=== PATIENT | male | born 1985 ===

== ENCOUNTER 2021-05-29 06:09 | Emergency (ER) | payer MEDICARE, MEDICAID ==
[2021-05-29] MEDS ORDERED: Ondansetron 4 MG/2 ML SDV IVPUSH ONE (06:19)
[2021-05-29] MEDS ORDERED: Sodium Chloride 0.9% 1,000 ML IV ONE (06:19)
[2021-05-29] MEDS ORDERED: HYDROmorphone 0.5 MG/0.5 ML Syringe IVPUSH ONE (06:32)
--- NOTE | 2021-05-29 07:04 | EDM.PDOC ---
"ED HPI GENERAL MEDICAL PROBLEM - General Chief Complaint: Abdominal Pain Stated Complaint: SEVERE ABDOMINAL PAIN 1 HOUR Time Seen by Provider: 05/29/21 07:00 Source of Information: Reports: Patient, Provider (Katherine PRASAD), RN, RN Notes Reviewed, Other (Caregiver) - History of Present Illness INITIAL COMMENTS - FREE TEXT/NARRATIVE: [facility] evaluation of acute LLQ abdominal pain and vomiting. Pt reports he awoke this morning and the pain immediately began without any known cause. The pain radiates from the left flank through the LLQ abdomen and into the left testicle. Denies fever, chills, or dysuria. Pt has vomited a couple times this morning. Pt rates the pain 8/10. Nothing aggravates or alleviates the pain. No previous abdominal surgeries. Onset: Today, Sudden Duration: Hour(s): (1), Intermittent, Waxing/Waning Location: Reports: Abdomen (LLQ) Quality: Reports: Ache Severity: Severe Improves with: Reports: None Worsens with: Reports: None Associated Symptoms: Reports: No Other Symptoms - Related Data Allergies Allergy/AdvReac Type Severity Reaction Status Date / Time No Known Allergies Allergy Verified 05/29/21 06:29 Home Meds: Home Meds Divalproex Sodium [Divalproex Sodium ER] 2,250 mg PO DAILY 05/29/21 [History] FLUoxetine HCl [Prozac] 60 mg PO DAILY 05/29/21 [History] Fish Oil/[place]-3 Fatty Acids [Fish Oil 1,000 MG] 1 gm PO DAILY 05/29/21 [History] Levothyroxine 12.5 mcg PO ACBREAKFAST 05/29/21 [History] Melatonin 5 mg PO DAILY 05/29/21 [History] Omeprazole 20 mg PO DAILY 05/29/21 [History] Simvastatin 20 mg PO DAILY 05/29/21 [History] Vortioxetine Hydrobromide [Trintellix] 10 mg PO DAILY 05/29/21 [History] lisinopriL [Lisinopril] 10 mg PO DAILY 05/29/21 [History] Past Medical History Neurological History: Reports: Seizure Psychiatric History: Reports: ADHD, Depression, Other (See Below) Other Psychiatric History: Obsessive Compulsive Neurosis; Oppositional Defiant Disorder; Intellectual disability Social & Family History - Family History Family Medical History: Unobtainable - Tobacco Use Tobacco Use Status *Q: Current Some Day Tobacco User Years of Tobacco use: 14 Packs/Tins Daily: 0.1 - Recreational Drug Use Recreational Drug Use: No - Living Situation & Occupation Living situation: Reports: Other (Detention) ED ROS GENERAL - Review of Systems Review Of Systems: Comprehensive ROS is negative, except as noted in HPI. ED EXAM, GI/ABD - Physical Exam Exam: See Below Exam Limited By: No Limitations General Appearance: Alert, WD/WN, No Apparent Distress Eyes: Bilateral: Normal Appearance (No scleral icterus) Throat/Mouth: Normal Voice, No Airway Compromise Head: Atraumatic, Normocephalic Neck: Normal Inspection Respiratory/Chest: No Respiratory Distress, Lungs Clear Cardiovascular: Regular Rate, Rhythm GI/Abdominal Exam: Normal Bowel Sounds, Soft, No Distention, Tender (LLQ). No: Guarding, Rigid, Rebound (Male) Exam: Deferred Rectal (Males) Exam: Deferred Back Exam: Normal Inspection Neurological: Alert, No Motor/Sensory Deficits Psychiatric: Flat Affect Skin Exam: Warm, Dry, Intact, Normal Color, No Rash Course - Vital Signs Last Recorded V/S: Last Vital Signs Temp 98.4 F 05/29/21 06:30 Pulse 84 05/29/21 07:08 Resp 24 H 05/29/21 07:08 BP 147/100 H 05/29/21 07:08 Pulse Ox 91 L 05/29/21 07:08 - Orders/Labs/Meds Orders: Active Orders 24 hr Category Date Time Status CULTURE BLOOD [BC] Stat Lab 05/29/21 06:29 Received DRUG SCREEN URINE BIORAD [URCHEM] Stat Lab 05/29/21 06:18 Ordered UA RFX ALEJANDRA AND CULT IF INDIC [URIN] Stat Lab 05/29/21 06:16 Ordered Sodium Chloride 0.9% [Normal Saline] 1,000 ml Med 05/29/21 06:19 Active IV .BOLUS Medication Orders Sodium Chloride (Normal Saline) 1,000 mls @ 200 mls/hr IV .BOLUS ONE Stop: 05/29/21 11:18 Last Admin: 05/29/21 06:39 Dose: 200 mls/hr Documented by: OJ Labs: Laboratory Tests 05/29/21 05/29/21 05/29/21 Range/Units 06:19 06:20 06:29 WBC 7.6 (5.0-10.0) 10^3/uL RBC 5.53 (4.6-6.2) 10^6/uL Hgb 16.5 (14.0-18.0) g/dL Hct 48.2 (40.0-54.0) % MCV 87.2 (80-100) fL MCH 29.8 (27.0-34.0) pg MCHC 34.2 (33.0-35.0) g/dL Plt Count 230 (150-450) 10^3/uL Neut % (Auto) 45.8 (42.2-75.2) % Lymph % (Auto) 45.0 (20.5-50.1) % [place] % (Auto) 7.7 (2-8) % Eos % (Auto) 1.0 (1.0-3.0) % Baso % (Auto) 0.5 (0.0-1.0) % D-Dimer, Quantitative (0-400) ng/mL Sodium (136-145) mmol/L Potassium (3.5-5.1) mmol/L Chloride (98-107) mmol/L Carbon Dioxide (21-32) mmol/L Anion Gap (7-13) mEq/L BUN (7-18) mg/dL Creatinine (0.70-1.30) mg/dL Est Cr Clr Drug Dosing mL/min Estimated GFR (MDRD) BUN/Creatinine Ratio (No establ ref range) Glucose (70-99) mg/dL Lactic Acid 1.9 (0.4-2.0) mmol/L Calcium (8.5-10.1) mg/dL Magnesium (1.8-2.4) mg/dL Total Bilirubin (0.2-1.0) mg/dL AST (15-37) U/L ALT (16-63) U/L Alkaline Phosphatase (46-116) U/L Total Protein (6.4-8.2) g/dL Albumin (3.4-5.0) g/dL Globulin Albumin/Globulin Ratio Amylase (25-115) U/L Lipase (73-393) U/L Influenza Type A RNA Negative (NEGATIVE) Influenza Type B RNA Negative (NEGATIVE) SARS-CoV-2 RNA (LES) Negative (NEGATIVE) 05/29/21 05/29/21 Range/Units 06:29 06:29 WBC (5.0-10.0) 10^3/uL RBC (4.6-6.2) 10^6/uL Hgb (14.0-18.0) g/dL Hct (40.0-54.0) % MCV (80-100) fL MCH (27.0-34.0) pg MCHC (33.0-35.0) g/dL Plt Count (150-450) 10^3/uL Neut % (Auto) (42.2-75.2) % Lymph % (Auto) (20.5-50.1) % [place] % (Auto) (2-8) % Eos % (Auto) (1.0-3.0) % Baso % (Auto) (0.0-1.0) % D-Dimer, Quantitative < 100 (0-400) ng/mL Sodium 141 (136-145) mmol/L Potassium 3.9 (3.5-5.1) mmol/L Chloride 102 (98-107) mmol/L Carbon Dioxide 24 (21-32) mmol/L Anion Gap 18.9 H (7-13) mEq/L BUN 15 (7-18) mg/dL Creatinine 0.79 (0.70-1.30) mg/dL Est Cr Clr Drug Dosing 147.49 mL/min Estimated GFR (MDRD) > 60 BUN/Creatinine Ratio 19.0 (No establ ref range) Glucose 160 H (70-99) mg/dL Lactic Acid (0.4-2.0) mmol/L Calcium 9.1 (8.5-10.1) mg/dL Magnesium 2.0 (1.8-2.4) mg/dL Total Bilirubin 0.5 (0.2-1.0) mg/dL AST 19 (15-37) U/L ALT 58 (16-63) U/L Alkaline Phosphatase 61 (46-116) U/L Total Protein 7.2 (6.4-8.2) g/dL Albumin 3.6 (3.4-5.0) g/dL Globulin 3.6 Albumin/Globulin Ratio 1.0 Amylase 16 L (25-115) U/L Lipase 161 (73-393) U/L Influenza Type A RNA (NEGATIVE) Influenza Type B RNA (NEGATIVE) SARS-CoV-2 RNA (LES) (NEGATIVE) Meds: Medications Generic Name Dose Route Start Last Admin Trade Name Freq PRN Reason Stop Dose Admin Sodium Chloride 1,000 mls @ 200 mls/hr 05/29/21 06:19 05/29/21 06:39 Normal Saline IV 05/29/21 11:18 200 mls/hr .BOLUS ONE Administration Discontinued Medications Generic Name Dose Route Start Last Admin Trade Name Freq PRN Reason Stop Dose Admin Hydromorphone HCl 0.5 mg 05/29/21 06:32 05/29/21 06:41 Hydromorphone 0.5 Mg/0.5 Ml Syringe IVPUSH 05/29/21 06:33 0.5 mg ONETIME ONE Administration Ondansetron HCl 4 mg 05/29/21 06:19 05/29/21 06:40 Ondansetron 4 Mg/2 Ml Sdv IVPUSH 05/29/21 06:20 4 mg ONETIME ONE Administration - Radiology Interpretation Free Text/Narrative:: [facility] Final Radiology Report Call: [phone] assistance Online chat: [email or web address] Name: IZAIAH FISHER Age: 35Years M Date: 05/29/2021 SSN: -- : [id number] Study: CT ABDOMEN PELVIS WO CONT Requesting Physician: ANGEL KEITH Images: [id number] Addl Studies: Provided Clinical History: Left flank, LLQ abd. pain radiating to L. testicle Contrast: Without Contrast Medium: Contrast Amount: Contrast Method: Page 1 of 2 PROCEDURE INFORMATION: Exam: CT Abdomen And Pelvis Without Contrast Exam date and time: 05/29/2021 7:44 AM Age: 35 years old Clinical indication: Abdominal pain; Flank; Left; Additional info: Left flank, llq abd. Pain radiating to L. Testicle TECHNIQUE: Imaging protocol: Computed tomography of the abdomen and pelvis without contrast. Radiation optimization: All CT scans at this facility use at least one of these dose optimization techniques: automated exposure control; mA and/or kV adjustment per patient size (includes targeted exams where dose is matched to clinical indication); or iterative reconstruction. COMPARISON: No relevant prior studies available. FINDINGS: Limitations: Evaluation of the solid and vascular structures is somewhat limited by lack of IV contrast. Lungs: The visualized lung bases demonstrate mild dependent atelectasis. Liver: Grossly unremarkable. Gallbladder and bile ducts: No gallstones are evident, but ultrasound would be more sensitive. No gross biliary ductal dilatation. Pancreas: Grossly unremarkable. Spleen: Grossly unremarkable. Adrenal glands: Grossly unremarkable. Kidneys and ureters: Very mild left-sided hydroureteronephrosis secondary to a 4 x 2 x 2 mm distal left ureteral stone, approximately 3 cm proximal to the ureterovesical junction. There is no right-sided IZAIAH FISHER | Final Radiology Report CONFIDENTIALITY STATEMENT This report is intended only for use by the referring physician, and only in accordance with law. If you received this in error, call [phone]. Page 2 of 2 hydronephrosis or stone. The right kidney contains a simple appearing 11 mm cyst. The kidneys appear otherwise grossly unremarkable. Stomach and bowel: The unopacified small bowel is not significantly distended to suggest obstruction. The large bowel is grossly unremarkable in appearance. Appendix: The appendix appears normal. Intraperitoneal space: No free air or significant free fluid. Vasculature: Unremarkable. No abdominal aortic aneurysm. Lymph nodes: No gross pathologic lymphadenopathy. Urinary bladder: Grossly unremarkable. Reproductive: Unremarkable as visualized. Bones/joints: Chronic right-sided pars defect is noted at L5. Mild degenerative changes involve the spine. Soft tissues: Unremarkable. IMPRESSION: Very mild left-sided hydroureteronephrosis secondary to a 4 x 2 x 2 mm distal left ureteral stone, approximately 3 cm proximal to the ureterovesical junction. COMMENTS: Consistent with the [employer]'s Incidental Findings Committee white paper ([employer] [place] [employer] 2018): Any incidental renal lesion less than 1 cm or classified as too small to characterize, or any incidental cystic renal lesion characterized as simple- appearing, is likely benign. No follow-up imaging is recommended for these lesions per consensus recommendations based on imaging criteria. Thank you for allowing us to participate in the care of your patient. Dictated and Authenticated by: Aung Espinosa MD 05/29/2021 8:14 AM Central Time ([place] & [place]) Departure - Departure Time of Disposition: 08:16 Disposition: Home, Self-Care 01 Condition: Good Clinical Impression: Left renal stone, Renal colic on left side - Discharge Information *PRESCRIPTION DRUG MONITORING PROGRAM REVIEWED*: No *COPY OF PRESCRIPTION DRUG MONITORING REPORT IN PATIENT ZAC: No Instructions: Kidney Stones, [id number], Renal Colic, [id number] Forms: ED Department Discharge Additional Instructions: Rx: Flomax 0.4mg Rx: Zofran 4mg Rx: [place] (Hydrocodone APAP) 5mg/325mg Drink plenty of water. Follow up with primary physician in clinic this week for recheck, and consideration of referral to urology clinic if the stone does not pass on its own. Return to ER if the pain is uncontrolled or if fever develops. Sepsis Event Note (ED) - Focused Exam Vital Signs: Vital Signs Temp Pulse Resp BP Pulse Ox 05/29/21 07:08 84 24 H 147/100 H 91 L 05/29/21 06:30 98.4 F 78 22 H 158/118 H 97"
[2021-05-29 07:22] LABS: CORONAVIRUS COVID-19 NAA NEGATIVE (NEGATIVE)
[2021-05-29 07:51] LABS: ANION GAP 18.9 mEq/L (7-13); CHLORIDE,CL 102 mmol/L (98-107); SODIUM,NA 141 mmol/L (136-145)
--- NOTE | 2021-05-29 08:14 | CT ---
PROCEDURE INFORMATION: Exam: CT Abdomen And Pelvis Without Contrast Exam date and time: 05/29/2021 7:44 AM Age: 35 years old Clinical indication: Abdominal pain; Flank; Left; Additional info: Left flank, llq abd. Pain radiating to L. Testicle TECHNIQUE: Imaging protocol: Computed tomography of the abdomen and pelvis without contrast. Radiation optimization: All CT scans at this facility use at least one of these dose optimization techniques: automated exposure control; mA and/or kV adjustment per patient size (includes targeted exams where dose is matched to clinical indication); or iterative reconstruction. COMPARISON: No relevant prior studies available. FINDINGS: Limitations: Evaluation of the solid and vascular structures is somewhat limited by lack of IV contrast. Lungs: The visualized lung bases demonstrate mild dependent atelectasis. Liver: Grossly unremarkable. Gallbladder and bile ducts: No gallstones are evident, but ultrasound would be more sensitive. No gross biliary ductal dilatation. Pancreas: Grossly unremarkable. Spleen: Grossly unremarkable. Adrenal glands: Grossly unremarkable. Kidneys and ureters: Very mild left-sided hydroureteronephrosis secondary to a 4 x 2 x 2 mm distal left ureteral stone, approximately 3 cm proximal to the ureterovesical junction. There is no right-sided hydronephrosis or stone. The right kidney contains a simple appearing 11 mm cyst. The kidneys appear otherwise grossly unremarkable. Stomach and bowel: The unopacified small bowel is not significantly distended to suggest obstruction. The large bowel is grossly unremarkable in appearance. Appendix: The appendix appears normal. Intraperitoneal space: No free air or significant free fluid. Vasculature: Unremarkable. No abdominal aortic aneurysm. Lymph nodes: No gross pathologic lymphadenopathy. Urinary bladder: Grossly unremarkable. Reproductive: Unremarkable as visualized. Bones/joints: Chronic right-sided pars defect is noted at L5. Mild degenerative changes involve the spine. Soft tissues: Unremarkable. IMPRESSION: Very mild left-sided hydroureteronephrosis secondary to a 4 x 2 x 2 mm distal left ureteral stone, approximately 3 cm proximal to the ureterovesical junction. COMMENTS: Consistent with the [place] [employer] [employer]'s Incidental Findings Committee white paper ([employer] Am [place] [employer]iol 2018): Any incidental renal lesion less than 1 cm or classified as too small to characterize, or any incidental cystic renal lesion characterized as simple-appearing, is likely benign. No follow-up imaging is recommended for these lesions per consensus recommendations based on imaging criteria.
== END 2021-05-29 09:45 | disposition home or self-care (01) ==
LOC: DL.ED 06:09
DX: N13.2 Hydronephrosis with renal and ureteral calculous obstruction (principal); Z72.0 Tobacco use; Z20.822 Contact with and (suspected) exposure to COVID-19
CPT/HCPCS: 0240U; 36415; 74176; 80053; 82150; 83605; 83690; 83735; 85025; 85379; 87040; 96374; 96375; 99284; J1170; J2405; J7030

== ENCOUNTER 2021-05-31 04:23 | Emergency (ER) | payer MEDICARE, MEDICAID ==
[2021-05-31] MEDS ORDERED: HYDROmorphone 1 MG/ML Syringe IVPUSH ONE (04:34)
[2021-05-31] MEDS ORDERED: Ondansetron 4 MG/2 ML SDV IVPUSH ONE (04:34)
[2021-05-31] MEDS ORDERED: Sodium Chloride 0.9% 1,000 ML IV ONE (04:34)
[2021-05-31] MEDS ORDERED: Ketorolac 30 MG/ML SDV IVPUSH ONE (05:20)
[2021-05-31 05:38] LABS: ANION GAP 16.6 mEq/L (7-13); CHLORIDE,CL 102 mmol/L (98-107); SODIUM,NA 139 mmol/L (136-145)
--- NOTE | 2021-05-31 05:44 | EDM.PDOC ---
"<RandyMarquez Lino - Last Filed: 05/31/21 06:26> ED HPI GENERAL MEDICAL PROBLEM - General Chief Complaint: Flank Pain Stated Complaint: VOMITING,STOMACH PAIN Time Seen by Provider: 05/31/21 04:40 Source of Information: Reports: Patient, Other - History of Present Illness INITIAL COMMENTS - FREE TEXT/NARRATIVE: ED with c/o LLQ pain, groin testicular pain. Patient seen in ED on Friday. 4mm stone on CT. Patient reports 1-2 days ago passed some blood. Has not been straining urine. Unknown if fever or chill. Rates pain 9/10 Vomiting this am. Did not need hydrocodone until this am Treatments LAB TESTER: Reports: Other (see below) Other Treatments LAB TESTER: Pain pill. ? hydrocodone. Left Flank Pain Score (Numeric/FACES): 10 - Related Data Allergies Allergy/AdvReac Type Severity Reaction Status Date / Time No Known Allergies Allergy Verified 05/31/21 05:10 Home Meds: Home Meds Divalproex Sodium [Divalproex Sodium ER] 2,250 mg PO DAILY 05/29/21 [History] Fish Oil/[place]-3 Fatty Acids [Fish Oil 1,000 MG] 1 gm PO DAILY 05/29/21 [History] Levothyroxine 12.5 mcg PO ACBREAKFAST 05/29/21 [History] Melatonin 5 mg PO DAILY 05/29/21 [History] Omeprazole 20 mg PO DAILY 05/29/21 [History] Simvastatin 20 mg PO DAILY 05/29/21 [History] Vortioxetine Hydrobromide [Trintellix] 10 mg PO DAILY 05/29/21 [History] lisinopriL [Lisinopril] 10 mg PO DAILY 05/29/21 [History] Acetaminophen/HYDROcodone [HYDROcodone-Acetaminophen 5-325 MG *] 5 mg PO ASDIRECTED PRN 05/31/21 [History] Tamsulosin [Flomax] 0.4 mg PO DAILY 05/31/21 [History] Past Medical History - Past Health History Medical/Surgical History: Denies Medical/Surgical History Neurological History: Reports: Seizure Psychiatric History: Reports: ADHD, Depression, Other (See Below) Other Psychiatric History: Obsessive Compulsive Neurosis; Oppositional Defiant Disorder; Intellectual disability Social & Family History - Family History Family Medical History: Unobtainable - Tobacco Use Second Hand Smoke Exposure: No - Caffeine Use Caffeine Use: Reports: None - Recreational Drug Use Recreational Drug Use: No - Living Situation & Occupation Living situation: Reports: Other ([facility]) ED ROS GENERAL - Review of Systems Review Of Systems: Comprehensive ROS is negative, except as noted in HPI. ED EXAM, RENAL/ - Physical Exam Exam: See Below Exam Limited By: No Limitations General Appearance: Alert, Anxious, Moderate Distress Eye Exam: Bilateral Eye: PERRL Ears: Normal External Exam, Hearing Grossly Normal Nose: Normal Inspection Throat/Mouth: Normal Inspection Head: Atraumatic, Normocephalic Neck: Normal Inspection, Full Range of Motion Respiratory/Chest: No Respiratory Distress Cardiovascular: Normal Peripheral Pulses, Regular Rate, Rhythm GI/Abdominal: Normal Bowel Sounds, Soft, Tender (left lower) Back Exam: Full Range of Motion Extremities: Normal Inspection Neurological: No: Normal Cognition Psychiatric: Anxious Skin Exam: Warm, Dry Course - Re-Assessments/Exams Free Text/Narrative Re-Assessment/Exam: 05/31/21 06:14 Dozing, awaiting Rad report. No further emesis. Departure - Departure Disposition: DC/Tfer to [facility] Condition: Good Clinical Impression: Renal calculi, Left renal stone, Renal colic on left side Nausea & vomiting Qualifiers: Vomiting type: bilious vomiting Qualified Code(s): R11.14 - Bilious vomiting - Discharge Information *PRESCRIPTION DRUG MONITORING PROGRAM REVIEWED*: No *COPY OF PRESCRIPTION DRUG MONITORING REPORT IN PATIENT ZAC: No Instructions: Kidney Stones, [id number], Renal Colic, [id number] Forms: ED Department Discharge Additional Instructions: Rx: Zofran 4mg ODT one every 6 hours as needed for nausea [place] (Hydrocodone) as previously prescribed Light diet as tolerated, start liquids advance as tolerated Izaiah has an appointment at [facility] in [place] tomorrow, 06/01/21 at 8:30AM. The clinic is located at [address]. Enter through door [address], the urology clinic is on the second floor. Sepsis Event Note (ED) - Evaluation Sepsis Screening Result: No Definite Risk <Zeus Villanueva - Last Filed: 05/31/21 08:35> ED HPI GENERAL MEDICAL PROBLEM - General Source of Information: Reports: Patient, Old Records, Provider (Marquez PRASAD), RN, RN Notes Reviewed, Other (Caregiver) History Limitations: Reports: Other (Mentally disabled.) - History of Present Illness Duration: Colic, Intermittent, Recurring Location: Reports: Abdomen, Back Quality: Reports: Ache, Same as Previous Episode Severity: Severe Improves with: Reports: None Worsens with: Reports: None Course - Vital Signs Last Recorded V/S: Last Vital Signs Temp 97.6 F 05/31/21 05:28 Pulse 87 05/31/21 05:56 Resp 17 05/31/21 05:56 BP 156/97 H 05/31/21 05:56 Pulse Ox 92 L 05/31/21 05:56 - Orders/Labs/Meds Labs: Laboratory Tests 05/31/21 05/31/21 05/31/21 Range/Units 04:50 04:50 04:50 WBC 7.2 (5.0-10.0) 10^3/uL RBC 4.85 (4.6-6.2) 10^6/uL Hgb 14.4 D (14.0-18.0) g/dL Hct 42.6 (40.0-54.0) % MCV 87.8 (80-100) fL MCH 29.7 (27.0-34.0) pg MCHC 33.8 (33.0-35.0) g/dL Plt Count 198 (150-450) 10^3/uL Neut % (Auto) 46.9 (42.2-75.2) % Lymph % (Auto) 42.5 (20.5-50.1) % [place] % (Auto) 9.6 H (2-8) % Eos % (Auto) 0.6 L (1.0-3.0) % Baso % (Auto) 0.4 (0.0-1.0) % Sodium 139 (136-145) mmol/L Potassium 3.6 (3.5-5.1) mmol/L Chloride 102 (98-107) mmol/L Carbon Dioxide 24 (21-32) mmol/L Anion Gap 16.6 H (7-13) mEq/L BUN 13 (7-18) mg/dL Creatinine 0.76 (0.70-1.30) mg/dL Est Cr Clr Drug Dosing 148.90 mL/min Estimated GFR (MDRD) > 60 BUN/Creatinine Ratio 17.1 (No establ ref range) Glucose 137 H (70-99) mg/dL Lactic Acid 1.4 (0.4-2.0) mmol/L Calcium 8.8 (8.5-10.1) mg/dL Total Bilirubin 0.4 (0.2-1.0) mg/dL AST 21 (15-37) U/L ALT 43 (16-63) U/L Alkaline Phosphatase 49 (46-116) U/L Total Protein 6.6 (6.4-8.2) g/dL Albumin 3.4 (3.4-5.0) g/dL Globulin 3.2 Albumin/Globulin Ratio 1.1 Urine Color (YELLOW) Urine Appearance (CLEAR) Urine pH (5.0-9.0) Ur Specific [place] (1.005-1.030) Urine Protein (NEGATIVE) Urine Glucose (UA) (NEGATIVE) Urine Ketones (NEGATIVE) Urine Occult Blood (NEGATIVE) Urine Nitrite (NEGATIVE) Urine Bilirubin (NEGATIVE) Urine Urobilinogen (0.2-1.0) mg/dL Ur Leukocyte Esterase (NEGATIVE) Urine RBC (0-5) /HPF Urine WBC (0-5/HPF) /HPF Urine Mucus (NOT SEEN) /LPF 05/31/21 Range/Units 07:20 WBC (5.0-10.0) 10^3/uL RBC (4.6-6.2) 10^6/uL Hgb (14.0-18.0) g/dL Hct (40.0-54.0) % MCV (80-100) fL MCH (27.0-34.0) pg MCHC (33.0-35.0) g/dL Plt Count (150-450) 10^3/uL Neut % (Auto) (42.2-75.2) % Lymph % (Auto) (20.5-50.1) % [place] % (Auto) (2-8) % Eos % (Auto) (1.0-3.0) % Baso % (Auto) (0.0-1.0) % Sodium (136-145) mmol/L Potassium (3.5-5.1) mmol/L Chloride (98-107) mmol/L Carbon Dioxide (21-32) mmol/L Anion Gap (7-13) mEq/L BUN (7-18) mg/dL Creatinine (0.70-1.30) mg/dL Est Cr Clr Drug Dosing mL/min Estimated GFR (MDRD) BUN/Creatinine Ratio (No establ ref range) Glucose (70-99) mg/dL Lactic Acid (0.4-2.0) mmol/L Calcium (8.5-10.1) mg/dL Total Bilirubin (0.2-1.0) mg/dL AST (15-37) U/L ALT (16-63) U/L Alkaline Phosphatase (46-116) U/L Total Protein (6.4-8.2) g/dL Albumin (3.4-5.0) g/dL Globulin Albumin/Globulin Ratio Urine Color Yellow (YELLOW) Urine Appearance Clear (CLEAR) Urine pH 6.0 (5.0-9.0) Ur Specific [place] >= 1.030 (1.005-1.030) Urine Protein Negative (NEGATIVE) Urine Glucose (UA) Negative (NEGATIVE) Urine Ketones Trace H (NEGATIVE) Urine Occult Blood Moderate H (NEGATIVE) Urine Nitrite Negative (NEGATIVE) Urine Bilirubin Negative (NEGATIVE) Urine Urobilinogen 0.2 (0.2-1.0) mg/dL Ur Leukocyte Esterase Negative (NEGATIVE) Urine RBC 30-40 H (0-5) /HPF Urine WBC 0-5 (0-5/HPF) /HPF Urine Mucus Moderate H (NOT SEEN) /LPF Meds: Medications Discontinued Medications Generic Name Dose Route Start Last Admin Trade Name Freq PRN Reason Stop Dose Admin Hydromorphone HCl 1 mg 05/31/21 04:34 05/31/21 04:52 Hydromorphone 1 Mg/Ml Syringe IVPUSH 05/31/21 04:35 1 mg ONETIME ONE Administration Sodium Chloride 1,000 mls @ 999 mls/hr 05/31/21 04:34 05/31/21 04:49 Normal Saline IV 05/31/21 05:34 999 mls/hr .BOLUS ONE Administration Ketorolac Tromethamine 30 mg 05/31/21 05:20 05/31/21 05:23 Ketorolac 30 Mg/Ml Sdv IVPUSH 05/31/21 05:21 30 mg ONETIME ONE Administration Ondansetron HCl 4 mg 05/31/21 04:34 05/31/21 04:51 Ondansetron 4 Mg/2 Ml Sdv IVPUSH 05/31/21 04:35 4 mg ONETIME ONE Administration - Radiology Interpretation Free Text/Narrative:: [facility] [place] [facility] Final Radiology Report Call: [phone] assistance Online chat: [email or web address] Name: IZAIAH FISHER Age: 35Years M Date: 05/31/2021 SSN: -- : [id number] Study: CT ABDOMEN PELVIS WO CONT Requesting Physician: MARQUEZ SALCEDO Images: [id number] Addl Studies: Provided Clinical History: left abdominal pain vomiting, recent stone left Contrast: Without Contrast Medium: Contrast Amount: Contrast Method: Page 1 of 2 PROCEDURE INFORMATION: Exam: CT Abdomen And Pelvis Without Contrast Exam date and time: 05/31/2021 5:13 AM Age: 35 years old Clinical indication: Abdominal pain; Flank; Left; Additional info: Left abdominal pain vomiting, recent stone left TECHNIQUE: Imaging protocol: Computed tomography of the abdomen and pelvis without contrast. Radiation optimization: All CT scans at this facility use at least one of these dose optimization techniques: automated exposure control; mA and/or kV adjustment per patient size (includes targeted exams where dose is matched to clinical indication); or iterative reconstruction. COMPARISON: CT Abdomen Pelvis wo Cont 05/29/2021 7:44 AM FINDINGS: Limitations: Evaluation of the solid and vascular structures is somewhat limited by lack of IV contrast. Lungs: The visualized lung bases demonstrate minor dependent atelectasis. Liver: Grossly unremarkable. Gallbladder and bile ducts: No gallstones are evident, but ultrasound would be more sensitive. No gross biliary ductal dilatation. Pancreas: Grossly unremarkable. Spleen: Grossly unremarkable. Adrenal glands: Grossly unremarkable. Kidneys and ureters: There is similar, very mild left-sided hydroureteronephrosis with a 4 x 2 x 2 mm stone similarly located in the distal ureter. There is no right-sided hydronephrosis or stone. The IZAIAH FISHER | Final Radiology Report CONFIDENTIALITY STATEMENT This report is intended only for use by the referring physician, and only in accordance with law. If you received this in error, call [phone]. Page 2 of 2 right kidney again contains an 11 mm simple appearing cyst. The kidneys appear otherwise grossly unremarkable. Stomach and bowel: The unopacified small bowel is not significantly distended to suggest obstruction. The large bowel is grossly unremarkable in appearance. Appendix: The appendix appears normal. Intraperitoneal space: No free air or significant free fluid. Vasculature: Unremarkable. No abdominal aortic aneurysm. Lymph nodes: No gross pathologic lymphadenopathy. Urinary bladder: Grossly unremarkable. Reproductive: Unremarkable as visualized. 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 Mild degenerative changes again involve the spine. Soft tissues: Unremarkable. IMPRESSION: Very mild left-sided hydroureteronephrosis secondary to a 4 mm distal left ureteral stone, similar to 05/29/2021. Thank you for allowing us to participate in the care of your patient. Dictated and Authenticated by: Aung Espinosa MD 05/31/2021 7:07 AM Central Time ([place] & [place]) - Re-Assessments/Exams Free Text/Narrative Re-Assessment/Exam: 05/31/21 08:25 I consulted urologist, Dr. Chicas. He agrees to see the pt in clinic tomorrow. [facility] has scheduled the pt tomorrow, 06/01/21 at 0830HRS. Departure - Departure Time of Disposition: 08:29 (discharge back to alf) Sepsis Event Note (ED) - Focused Exam Vital Signs: Vital Signs Temp Pulse Resp BP Pulse Ox 05/31/21 05:56 87 17 156/97 H 92 L 05/31/21 05:28 97.6 F 80 16 173/108 H 96 05/31/21 05:03 83 15 157/91 H 98 05/31/21 04:33 96.5 F L 77 16 176/105 H 99"
--- NOTE | 2021-05-31 07:07 | CT ---
PROCEDURE INFORMATION: Exam: CT Abdomen And Pelvis Without Contrast Exam date and time: 05/31/2021 5:13 AM Age: 35 years old Clinical indication: Abdominal pain; Flank; Left; Additional info: Left abdominal pain vomiting, recent stone left TECHNIQUE: Imaging protocol: Computed tomography of the abdomen and pelvis without contrast. Radiation optimization: All CT scans at this facility use at least one of these dose optimization techniques: automated exposure control; mA and/or kV adjustment per patient size (includes targeted exams where dose is matched to clinical indication); or iterative reconstruction. COMPARISON: CT Abdomen Pelvis wo Cont 05/29/2021 7:44 AM FINDINGS: Limitations: Evaluation of the solid and vascular structures is somewhat limited by lack of IV contrast. Lungs: The visualized lung bases demonstrate minor dependent atelectasis. Liver: Grossly unremarkable. Gallbladder and bile ducts: No gallstones are evident, but ultrasound would be more sensitive. No gross biliary ductal dilatation. Pancreas: Grossly unremarkable. Spleen: Grossly unremarkable. Adrenal glands: Grossly unremarkable. Kidneys and ureters: There is similar, very mild left-sided hydroureteronephrosis with a 4 x 2 x 2 mm stone similarly located in the distal ureter. There is no right-sided hydronephrosis or stone. The right kidney again contains an 11 mm simple appearing cyst. The kidneys appear otherwise grossly unremarkable. Stomach and bowel: The unopacified small bowel is not significantly distended to suggest obstruction. The large bowel is grossly unremarkable in appearance. Appendix: The appendix appears normal. Intraperitoneal space: No free air or significant free fluid. Vasculature: Unremarkable. No abdominal aortic aneurysm. Lymph nodes: No gross pathologic lymphadenopathy. Urinary bladder: Grossly unremarkable. Reproductive: Unremarkable as visualized. 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 Mild degenerative changes again involve the spine. Soft tissues: Unremarkable. IMPRESSION: Very mild left-sided hydroureteronephrosis secondary to a 4 mm distal left ureteral stone, similar to 05/29/2021.
== END 2021-05-31 08:58 ==
LOC: DL.ED 04:23
DX: N13.2 Hydronephrosis with renal and ureteral calculous obstruction (principal); R11.2 Nausea with vomiting, unspecified; Z79.899 Other long term (current) drug therapy
CPT/HCPCS: 36415; 74176; 80053; 81001; 83605; 85025; 96374; 96375; 99284; J1170; J1885; J2405; J7030

== ENCOUNTER 2022-12-05 16:29 | Emergency (ER) | payer MEDICARE, MEDICAID ==
[2022-12-05] MEDS ORDERED: Sodium Chloride 0.9% 10 ML Syringe FLUSH PRN (16:40)
[2022-12-05] MEDS ORDERED: Sodium Chloride 0.9% 1,000 ML IV ONE (16:41)
[2022-12-05 16:57] LABS: BASOPHILS PERCENT AUTO 0.4 % (0.0-1.0); EOSINOPHILS PERCENT AUTO 0.5 % (1.0-3.0); HEMOGLOBIN 16.1 g/dL (14.0-18.0); LYMPHOCYTES PERCENT AUTO 52.2 % (20.5-50.1); MEAN CORPUSCULAR HEMOGLOBIN 29.9 pg (27.0-34.0); MEAN CORPUSCULAR HGB CONC 33.5 g/dL (33.0-35.0); MEAN CORPUSCULAR VOLUME 89.2 fL (80-100); MONOCYTES PERCENT AUTO 8.8 % (2-8); NEUTROPHILS PERCENT AUTO 38.1 % (42.2-75.2); PLATELET COUNT,PLT 225 10^3/uL (150-450); RED BLOOD CELL COUNT 5.38 10^6/uL (4.6-6.2); WHITE BLOOD CELL COUNT,WBC 10.1 10^3/uL (5.0-10.0)
[2022-12-05 17:25] LABS: A/G RATIO 1.1; ALBUMIN 3.9 g/dL (3.4-5.0); BILIRUBIN TOTAL 0.3 mg/dL (0.2-1.0); BUN/CREATININE RATIO 10.5 (No establ ref range); CALCIUM 8.9 mg/dL (8.5-10.1); CREATININE 0.95 mg/dL (0.70-1.30); EST CRCL DRUG DOSING (CG) 114.49 mL/min; PROTEIN TOTAL,TP 7.5 g/dL (6.4-8.2)
== END 2022-12-05 17:48 | disposition home or self-care (01) ==
LOC: DL.ED 16:29
DX: G40.909 Epilepsy, unspecified, not intractable, without status epilepticus (principal)
CPT/HCPCS: 36415; 80053; 80164; 85025; 96360; 99283; 99285-25; J3490; J7030

== ENCOUNTER 2023-09-24 15:53 | Emergency (ER) | payer MEDICARE, MEDICAID ==
[2023-09-24 16:20] LABS: BASOPHILS PERCENT AUTO 0.4 % (0.0-1.0); HEMATOCRIT 46.5 % (40.0-54.0); HEMOGLOBIN 15.5 g/dL (14.0-18.0); LYMPHOCYTES PERCENT AUTO 43.1 % (20.5-50.1); MEAN CORPUSCULAR HEMOGLOBIN 30.2 pg (27.0-34.0); MEAN CORPUSCULAR HGB CONC 33.3 g/dL (33.0-35.0); MEAN CORPUSCULAR VOLUME 90.5 fL (80-100); MONOCYTES PERCENT AUTO 10.7 % (2-8); NEUTROPHILS PERCENT AUTO 43.8 % (42.2-75.2); PLATELET COUNT,PLT 256 10^3/uL (150-450); RED BLOOD CELL COUNT 5.14 10^6/uL (4.6-6.2); WHITE BLOOD CELL COUNT,WBC 11.3 10^3/uL (5.0-10.0)
[2023-09-24] MEDS: Sodium Chloride 0.9% 1,000 ML IV ONE (16:21)
[2023-09-24] MEDS: levETIRAcetam in NaCl (iso-os) 1,000 MG in Premix Bag 1 BAG IV ONE (16:22)
[2023-09-24] MEDS: Sodium Chloride 0.9% 10 ML Syringe FLUSH PRN (16:25)
[2023-09-24] MEDS: Ondansetron 4 MG/2 ML SDV IVPUSH ONE (16:26)
[2023-09-24 16:34] LABS: ALANINE AMINOTRANSFERASE,ALT 44 U/L (16-63); ALBUMIN 3.8 g/dL (3.4-5.0); ALKALINE PHOSPHATASE 72 U/L (46-116); ANION GAP 23.7 mEq/L (7-13); ASPARTATE AMNIOTRANSFERASE,AST 21 U/L (15-37); BILIRUBIN TOTAL 0.2 mg/dL (0.2-1.0); BLOOD UREA NITROGEN,BUN 11 mg/dL (7-18); BUN/CREATININE RATIO 11.7 (No establ ref range); CALCIUM 9.4 mg/dL (8.5-10.1); CARBON DIOXIDE,CO2 19 mmol/L (21-32); CHLORIDE,CL 102 mmol/L (98-107); CREATININE 0.94 mg/dL (0.70-1.30); GLUCOSE RANDOM 78 mg/dL (70-99); POTASSIUM,K 3.7 mmol/L (3.5-5.1); PROTEIN TOTAL,TP 7.7 g/dL (6.4-8.2); SODIUM,NA 141 mmol/L (136-145)
[2023-09-24 16:35] LABS: ESTIMATED GFR 107 mL/min (>=60)
[2023-09-24] MEDS: Ibuprofen 800 MG Tab PO ONE (18:00)
== END 2023-09-24 18:15 | disposition home or self-care (01) ==
LOC: DL.ED 15:53
DX: G40.409 Other generalized epilepsy and epileptic syndromes, not intractable, without status epilepticus (principal); I10 Essential (primary) hypertension; Z79.899 Other long term (current) drug therapy
CPT/HCPCS: 36415; 70450; 80053; 80164; 85025; 96361; 96374; 96375; 99284; 99285-25; A9270-GY; J1953; J2405; J3490; J7030